=== PATIENT | male | born 1960 | race Hispanic/Latino ===

== ENCOUNTER 2017-07-27 14:54 | Emergency (ER) | payer OTHER ==
[~2017-07-27] VITALS: Ht 172.7 cm; Wt 102.7 kg
[2017-07-27] MEDS ORDERED: FLEXERIL10 MG PO (15:11)
[2017-07-27] MEDS ORDERED: MOTRIN800 MG PO (15:11)
[2017-07-27 15:34] VITALS: BP 155/91
== END 2017-07-27 15:35 | disposition home or self-care (01) ==
LOC: EME 14:54
DX: S46.211A Strain of muscle, fascia and tendon of other parts of biceps, right arm, initial encounter (principal); X50.9XXA Other and unspecified overexertion or strenuous movements or postures, initial encounter; F17.200 Nicotine dependence, unspecified, uncomplicated
CPT/HCPCS: 99281; 99284